=== PATIENT | female | born 1990 | race Caucasian/White ===

== ENCOUNTER 2018-07-04 20:23 | Emergency (ER) | payer OTHER ==
[~2018-07-04] VITALS: Ht 175.3 cm; Wt 107.0 kg
--- NOTE | 2018-07-04 21:00 | NUR ---
Pt walked in c/o nausea, R lower back pain radiating to her abdomen, 10/10 on scale. Pt states she went to urgent care today and was advised to go to ED. Pt is A, O/4, ambulates with steady gait. Awaiting to be seen by MD.
[2018-07-04] MEDS ORDERED: ONDANSETRON HCL/PF 4 MG/2 ML VIAL ONE (21:31)
[2018-07-04] MEDS ORDERED: KETOROLAC TROMETHAMINE INJ 30 MG/ML VIAL IV ONE (22:00)
[2018-07-04] MEDS ORDERED: CEFTRIAXONE 1GM BAG (ER ONLY) 1 GM/50 ML PIGGYBACK IV ONE (22:00)
[2018-07-04] MEDS ORDERED: IV NS 0.9% 1,000 ML BAG IV ONE (22:00)
[2018-07-04 22:06] LABS: BASOPHILS # (AUTO) 0.1 /CMM (0.0-0.2); BASOPHILS % (AUTO) 0.5 % (0.0-2.0); EOSINOPHILS % (AUTO) 0.7 % (0.0-6.0); HEMATOCRIT 42 % (33-45); LYMPHOCYTES % (AUTO) 26.1 % (20.0-44.0); MEAN CORPUSCULAR HGB CONC 33 g/dl (31.0-36.0); MEAN CORPUSCULAR VOLUME 92 fL (82-100); MONOCYTES # (AUTO) 0.6 /CMM (0.1-1.30); MONOCYTES % (AUTO) 5.3 % (2.0-12.0); NEUTROPHILS # (AUTO) 7.8 /CMM (1.8-8.9); NEUTROPHILS % (AUTO) 67.4 % (43.0-81.0); PLATELET COUNT (AUTO) 334 /CMM (150-450); RED BLOOD CELL COUNT(AUTO) 4.57 MIL/uL (4.0-5.2); WHITE BLOOD COUNT (AUTO) 11.5 K/uL (4.3-11.0)
[2018-07-04 22:16] LABS: CALCIUM, SERUM 9.2 mg/dL (8.5-10.1); CREATININE 0.8 mg/dL (0.6-1.3); POTASSIUM 4.2 mmol/L (3.5-5.1)
[2018-07-04] MEDS ORDERED: KETOROLAC TROMETHAMINE INJ 30 MG/ML VIAL ONE (22:20)
[2018-07-04] MEDS ORDERED: CEFTRIAXONE 1GM BAG (ER ONLY) 100 ML IV ONE (22:20)
--- NOTE | 2018-07-04 22:30 | NUR ---
Addendum: Normal saline 2 L wide open; start time 4 - end time 07/05/2018- 0031; PIV # 20 LH; port #1 Rocephin 1 g; IV piggyback; start time 2243 - end time 2300; PIV # 20 LH; port #2
[2018-07-04 22:36] LABS: APPEARANCE,URINE CLOUDY (CLEAR); BILIRUBIN,URINE NEGATIVE (NEGATIVE); BLOOD, URINE SMALL Ery/uL (NEGATIVE); COLOR,URINE ORANGE (YELLOW); KETONES,URINE NEGATIVE (NEGATIVE); LEUKOCYTE ESTERASE ,URINE LARGE (NEGATIVE); NITRITE, URINE POSITIVE (NEGATIVE); PH,URINE 5.5 (5.0-8.0); PROTEIN,URINE 30 mg/dl (NEGATIVE); UGLUCOSE 100 MG/DL mg/dL (NEGATIVE)
[2018-07-04 22:57] LABS: BACTERIA,URINE Moderate /HPF (None Seen); SQUAMOUS EPITHELIAL CELL,UR Moderate /HPF (None Seen); WBC,URINE 81-100 /HPF (0-3)
[2018-07-05 00:30] VITALS: BP 117/78
--- NOTE | 2018-07-05 00:31 | NUR ---
Patient discharged to home in stable condition. Written and verbal after care instructions and prescription given. Patient verbalizes understanding of instruction. Pt. ambulatory with a steady gait
== END 2018-07-05 00:32 | disposition home or self-care (01) ==
LOC: ER 20:26
DX: N12 Tubulo-interstitial nephritis, not specified as acute or chronic (principal); I95.1 Orthostatic hypotension; E28.2 Polycystic ovarian syndrome; F41.9 Anxiety disorder, unspecified; F32.9 Major depressive disorder, single episode, unspecified; F42.8 Other obsessive-compulsive disorder; Z90.49 Acquired absence of other specified parts of digestive tract; Z88.1 Allergy status to other antibiotic agents; Z91.041 Radiographic dye allergy status
CPT/HCPCS: 36415; 80048-TC; 81000-TC; 85025-TC; 87086-TC; A4606; J0696; J1885; J2405; J7030; Z7610

== ENCOUNTER 2018-07-16 22:52 | Emergency (ER) | payer OTHER ==
[~2018-07-16] VITALS: Ht 175.3 cm; Wt 107.0 kg
--- NOTE | 2018-07-16 23:15 | NUR ---
Pt ambulatory w/ steady gait, here for rt flank pain, seen 07/04/18 for kidney infection, taking keflex x2 wks w/ reported worsening rt flank pain, dysuria w/ urinary frequency. AOx4, afebrile w/ resp even & unlabored, denies any N/V, no hematuria. Urine obtained & sent to lab. Dr. Ramos at bedside for further eval.
[2018-07-16] MEDS ORDERED: KETOROLAC TROMETHAMINE INJ 30 MG/ML VIAL ONE (23:18)
[2018-07-16] MEDS ORDERED: ONDANSETRON HCL/PF 4 MG/2 ML VIAL ONE (23:19)
[2018-07-16] MEDS ORDERED: IV NS 0.9% 1,000 ML BAG IV ONE (23:30)
[2018-07-16] MEDS ORDERED: KETOROLAC TROMETHAMINE INJ 30 MG/ML VIAL IV ONE (23:30)
[2018-07-16] MEDS ORDERED: ONDANSETRON HCL/PF 4 MG/2 ML VIAL IVP ONE (23:30)
--- NOTE | 2018-07-16 23:30 | NUR ---
BRYCE started, labs drawn & sent.
[2018-07-16 23:53] LABS: APPEARANCE,URINE SL CLOUDY (CLEAR); BILIRUBIN,URINE NEGATIVE (NEGATIVE); BLOOD, URINE 1+ Ery/uL (NEGATIVE); COLOR,URINE YELLOW (YELLOW); KETONES,URINE TRACE (NEGATIVE); LEUKOCYTE ESTERASE ,URINE NEGATIVE (NEGATIVE); NITRITE, URINE NEGATIVE (NEGATIVE); PROTEIN,URINE NEGATIVE (NEGATIVE); UGLUCOSE NEGATIVE (NEGATIVE); UROBILINOGEN,URINE 0.2 EU/dL (0.2)
[2018-07-17 00:04] LABS: CALCIUM, SERUM 9.2 mg/dL (8.5-10.1); POTASSIUM 3.9 mmol/L (3.5-5.1)
--- NOTE | 2018-07-17 00:05 | NUR ---
IV flds continue to be infusing, medicated as ordered for continued rt flank pain, no active N/V at this time.
[2018-07-17 00:07] LABS: BACTERIA,URINE Few /HPF (None Seen); SQUAMOUS EPITHELIAL CELL,UR Few /HPF (None Seen)
--- NOTE | 2018-07-17 00:15 | NUR ---
Pt sent to [facility] via [facility].
[2018-07-17 00:18] LABS: ALBUMIN 3.5 g/dL (3.4-5.0); BILIRUBIN,DIRECT 0.1 mg/dL (0.0-0.2); BILIRUBIN,TOTAL 0.4 mg/dL (0.2-1.0); TOTAL PROTEIN, SERUM 7.3 g/dL (6.4-8.2)
[2018-07-17 00:28] LABS: BASOPHILS % (AUTO) 0.3 % (0.0-2.0); EOSINOPHILS % (AUTO) 0.7 % (0.0-6.0); HEMATOCRIT 41 % (33-45); HEMOGLOBIN 13.7 g/dL (11.5-14.8); LYMPHOCYTES # (AUTO) 3.4 /CMM (0.8-4.8); LYMPHOCYTES % (AUTO) 29.9 % (20.0-44.0); MEAN CORPUSCULAR HGB CONC 33 g/dl (31.0-36.0); MEAN CORPUSCULAR VOLUME 91 fL (82-100); MONOCYTES # (AUTO) 0.7 /CMM (0.1-1.30); MONOCYTES % (AUTO) 6.5 % (2.0-12.0); NEUTROPHILS # (AUTO) 7.1 /CMM (1.8-8.9); NEUTROPHILS % (AUTO) 62.6 % (43.0-81.0); PLATELET COUNT (AUTO) 367 /CMM (150-450); RED BLOOD CELL COUNT(AUTO) 4.52 MIL/uL (4.0-5.2); WHITE BLOOD COUNT (AUTO) 11.3 K/uL (4.3-11.0)
--- NOTE | 2018-07-17 00:40 | NUR ---
Dr. Ramos at bedside for update on pt status.
[2018-07-17] MEDS ORDERED: ACETAMINOPHEN ES 500 MG TABLET PO ONE (01:00)
[2018-07-17] MEDS ORDERED: ACETAMINOPHEN ES 500 MG TABLET ONE (01:06)
--- NOTE | 2018-07-17 01:18 | NUR ---
Dr. Ramos at bedside, updating pt. pt medicated as ordered for continued rt flank pain, no N/V at this time.
--- NOTE | 2018-07-17 01:27 | NUR ---
Pt ambulatory w/ steady gait, resp even & unlabored, w/ nad noted. IV removed. Catheter intact and site benign. Pressure and 4x4 applied to site. No bleeding noted.Patient discharged to home in stable condition. Written and verbal after care instructions given. Patient verbalizes understanding of instruction.
[2018-07-17 01:32] VITALS: BP 134/72
== END 2018-07-17 01:32 | disposition home or self-care (01) ==
LOC: ER 22:55
DX: K59.00 Constipation, unspecified (principal); E03.9 Hypothyroidism, unspecified; E28.2 Polycystic ovarian syndrome; G43.909 Migraine, unspecified, not intractable, without status migrainosus; I95.1 Orthostatic hypotension; F41.9 Anxiety disorder, unspecified; F32.9 Major depressive disorder, single episode, unspecified; F42.8 Other obsessive-compulsive disorder; Z90.49 Acquired absence of other specified parts of digestive tract; Z88.1 Allergy status to other antibiotic agents; Z60.2 Problems related to living alone
CPT/HCPCS: 36415; 80048-TC; 80076-TC; 81000-TC; 83690-TC; 84443-TC; 84703-TC; 85025-TC; A4606; J1885; J2405; J7030; Z7610